=== PATIENT | male | born 1975 | race Caucasian/White ===

== ENCOUNTER 2017-10-08 09:24 | Emergency (ER) | payer MEDICAID ==
[~2017-10-08] VITALS: Ht 170.2 cm; Wt 73.0 kg
[~2017-10-08 09:24] MED LIST: CLIN150C8 PO; CLIN300C85 PO; HYDR-569 PO; OXYC-145 PO; PRED20TA PO
[2017-10-08 09:28] VITALS: BP 132/85
[2017-10-08] MEDS ORDERED: CefTRIAXone 250MG IM Kit w/LIDOcaine IM ONE (10:00)
[2017-10-08] MEDS ORDERED: CEPH-572 PO (10:02)
[2017-10-08] MEDS ORDERED: SULF1TAB49 PO (10:02)
[2017-10-08] MEDS ORDERED: TETanus/Pertussis (Acell)/Diphther VAC/PF (Tdap-Adult) 0.5ml syringe IMVAC ONE (10:05)
[2017-10-08] MEDS ORDERED: NO HOME MEDS (17:13)
== END 2017-10-08 10:33 | disposition home or self-care (01) ==
LOC: ER 09:25
DX: L03.114 Cellulitis of left upper limb (principal); F12.90 Cannabis use, unspecified, uncomplicated; F15.90 Other stimulant use, unspecified, uncomplicated; Z88.8 Allergy status to other drugs, medicaments and biological substances; Z79.2 Long term (current) use of antibiotics; Z79.899 Other long term (current) drug therapy; Z56.0 Unemployment, unspecified
CPT/HCPCS: 90471; 90715; 96372; 99284; J0696

== ENCOUNTER 2017-10-08 15:01 | Inpatient (IN) | payer MEDICAID ==
[~2017-10-08] VITALS: Ht 170.2 cm; Wt 75.0 kg
[~2017-10-08 15:01] MED LIST changes: +CEPH-572 PO; +SULF1TAB49 PO
[2017-10-08 15:44] LABS: BASOPHILS % (AUTO) 0.2 % (0-1); EOSINOPHILS # (AUTO) 0.3 X10'3 (0-0.9); EOSINOPHILS % (AUTO) 1.8 % (0-6); HEMATOCRIT 41.9 % (42.0-52.0); HEMOGLOBIN 14.3 g/dl (14.0-17.9); LYMPHOCYTES # (AUTO) 1.9 X10'3 (1.1-4.8); MEAN CORPUSCULAR HEMOGLOBIN 29.4 PG (27.0-31.0); MEAN CORPUSCULAR HGB CONC 34.1 % (33.0-36.5); MEAN CORPUSCULAR VOLUME 86.2 FL (78-98); MEAN PLATELET VOLUME 8.4 FL (7.4-10.4); MONOCYTES # (AUTO) 0.9 X10'3 (0-0.9); MONOCYTES % (AUTO) 6.1 % (2-12); NEUTROPHILS # (AUTO) 11.5 X10'3 (1.8-7.7); NEUTROPHILS % (AUTO) 78.9 % (42-75); PLATELET COUNT 320 X10'3 (140-440); RED BLOOD COUNT 4.85 X10'6 (4.70-6.10); RED CELL DISTRIBUTION WIDTH 12.8 % (11.5-14.5); WHITE BLOOD COUNT 14.6 X10'3 (4.5-11.0)
[2017-10-08 15:55] LABS: ALBUMIN 3.6 G/DL (3.4-5.0); ANION GAP 11 (8-16); BLOOD UREA NITROGEN 11 MG/DL (7-18); BUN/CREATININE RATIO 11.6 (5.4-32.0); CALCIUM 9.2 MG/DL (8.5-10.1); CHLORIDE 99 MMOL/L (99-107); CREATININE 0.95 MG/DL (0.60-1.10); GLUCOSE 149 MG/DL (70-104); POTASSIUM 3.3 MMOL/L (3.5-5.1); SODIUM 134 MMOL/L (135-145); TOTAL CARBON DIOXIDE 24.4 MMOL/L (24-32); eGFR 88 ML/MIN
[2017-10-08] MEDS ORDERED: iohexol 300mg/ml 100ml inj. ONE (16:02)
[2017-10-08] MEDS ORDERED: normal saline 1000ML IV soln IVB ONE (16:05)
[2017-10-08] MEDS ORDERED: NO HOME MEDS (17:13)
[2017-10-08] MEDS ORDERED: CefTRIAXone 2gm/D5W 50ml 50 ML IV ONE (17:25)
[2017-10-08] MEDS ORDERED: vancomycin/NS 1 GM ADD-VANTAGE 250 ML X 1 DOSE IV ONE (17:30)
[2017-10-08] MEDS ORDERED: HYDROmorphone inj. 0.5 MG/0.5 ML DISP.SYRIN IV PRN ×2 (18:00)
[2017-10-08] MEDS ORDERED: metoclopramide 5 mg/ml inj IV PRN (18:00)
[2017-10-08] MEDS ORDERED: acetaminophen 650mg rectal suppository RC PRN (18:00)
[2017-10-08] MEDS ORDERED: potassium Cl 40MEQ/NS 500ml 500 ML IV PRN ×2 (18:00)
[2017-10-08] MEDS ORDERED: HYDROcodone/acetaminophen 5mg/325mg tablet PO PRN (18:00)
[2017-10-08] MEDS ORDERED: potassium Cl 20 mEq SR tablet PO PRN ×2 (18:00)
[2017-10-08] MEDS ORDERED: bisacodyl 10mg suppository rectal RC PRN (18:00)
[2017-10-08] MEDS ORDERED: morphine 4 MG/ML inj SYRINge IV PRN ×2 (18:00)
[2017-10-08] MEDS ORDERED: diphenhydrAMINE 25mg capsule PO PRN (18:00)
[2017-10-08] MEDS ORDERED: ondansetron/PF 4mg/2ml inj IV PRN (18:00)
[2017-10-08] MEDS ORDERED: acetaminophen 325mg tablet PO PRN ×2 (18:00)
[2017-10-08] MEDS ORDERED: diphenhydrAMINE 50 mg/ml inj IV PRN (18:00)
[2017-10-08] MEDS ORDERED: mag hydrox/Alum hydrox/simeth 30ml oral suspension PO PRN (18:00)
[2017-10-08] MEDS ORDERED: magnesium hydroxide 30ml (MOM) UD suspension PO PRN (18:00)
[2017-10-08 19:11] LABS: PARTIAL THROMBOPLASTIN TIME 33 SECONDS (22-32)
[2017-10-08 19:44] VITALS: BP 132/86
[2017-10-08] MEDS: docusate sod 100mg capsule PO SCH (20:00)
[2017-10-08] MEDS: HYDROcodone/acetaminophen 10/325mg tab PO PRN (20:12)
[2017-10-08] MEDS ORDERED: temazepam 15mg capsule PO PRN (21:00)
[2017-10-08] MEDS: potassium Cl 20mEq in NS 1,000 ML IV SCH (21:32)
[2017-10-08 21:46] LABS: URINE AMPHETAMINE SCREEN POSITIVE (Neg); URINE BARBITUATE SCREEN NEGATIVE (Neg); URINE BENZODIAZEPINES SCREEN NEGATIVE (Neg); URINE CANNABINOID SCREEN NEGATIVE (Neg); URINE COCAINE SCREEN NEGATIVE (Neg); URINE METHADONE SCREEN NEGATIVE (Neg); URINE OPIATE SCREEN NEGATIVE (Neg); URINE PHENCYCLIDINE SCREEN NEGATIVE (Neg)
[2017-10-08 22:00] VITALS: BP 120/86
[2017-10-09] MEDS: HYDROcodone/acetaminophen 10/325mg tab PO PRN ×3 (03:33→16:47)
[2017-10-09 05:00] VITALS: BP 127/86
[2017-10-09 06:04] LABS: BASOPHILS % (AUTO) 0.1 % (0-1); EOSINOPHILS # (AUTO) 0.4 X10'3 (0-0.9); EOSINOPHILS % (AUTO) 2.8 % (0-6); HEMATOCRIT 38.1 % (42.0-52.0); HEMOGLOBIN 13.2 g/dl (14.0-17.9); LYMPHOCYTES # (AUTO) 2.5 X10'3 (1.1-4.8); LYMPHOCYTES % (AUTO) 18.4 % (21-51); MEAN CORPUSCULAR HEMOGLOBIN 30.3 PG (27.0-31.0); MEAN CORPUSCULAR HGB CONC 34.6 % (33.0-36.5); MEAN CORPUSCULAR VOLUME 87.7 FL (78-98); MEAN PLATELET VOLUME 8.6 FL (7.4-10.4); MONOCYTES # (AUTO) 1.2 X10'3 (0-0.9); MONOCYTES % (AUTO) 8.6 % (2-12); NEUTROPHILS # (AUTO) 9.5 X10'3 (1.8-7.7); NEUTROPHILS % (AUTO) 70.1 % (42-75); PLATELET COUNT 296 X10'3 (140-440); RED BLOOD COUNT 4.35 X10'6 (4.70-6.10); RED CELL DISTRIBUTION WIDTH 12.5 % (11.5-14.5); WHITE BLOOD COUNT 13.5 X10'3 (4.5-11.0)
[2017-10-09 06:22] LABS: ALANINE AMINOTRANSFERASE 24 U/L (12-78); ALBUMIN 2.9 G/DL (3.4-5.0); ALBUMIN/GLOBULIN RATIO 0.7 (1.1-1.5); ALKALINE PHOSPHATASE 78 IU/L (46-116); ANION GAP 8 (8-16); ASPARTATE AMINO TRANSFERASE 19 U/L (10-37); BILIRUBIN,TOTAL 0.2 MG/DL (0.1-1.0); BLOOD UREA NITROGEN 10 MG/DL (7-18); BUN/CREATININE RATIO 12.5 (5.4-32.0); CALCIUM 8.3 MG/DL (8.5-10.1); CHLORIDE 103 MMOL/L (99-107); GLUCOSE 112 MG/DL (70-104); POTASSIUM 4.2 MMOL/L (3.5-5.1); SODIUM 137 MMOL/L (135-145); TOTAL CARBON DIOXIDE 25.9 MMOL/L (24-32); TOTAL PROTEIN 6.8 G/DL (6.4-8.2); eGFR > 90 ML/MIN
[2017-10-09] MEDS: K and/or MAG REPLACEMENT MC SCH (07:36)
[2017-10-09] MEDS: docusate sod 100mg capsule PO SCH ×3 (07:39→20:16)
[2017-10-09] MEDS: vancomycin/NS 1 GM ADD-VANTAGE 250 ML IV SCH ×3 (07:43→23:16)
[2017-10-09] MEDS: pantoprazole 40mg Tablet.DR PO SCH (07:43)
[2017-10-09 10:00] VITALS: BP 125/75
[2017-10-09] MEDS: potassium Cl 20mEq in NS 1,000 ML IV SCH ×2 (14:00→14:46)
[2017-10-09 18:00] VITALS: BP 137/85
[2017-10-09] MEDS: piperacillin/tazo 3.375gm/50ml 50 ML IV SCH (20:16)
[2017-10-09 22:00] VITALS: BP 116/76
[2017-10-10] VITALS (8 sets, daily range): BP systolic 109–133; BP diastolic 72–93
[2017-10-10] MEDS: piperacillin/tazo 3.375gm/50ml 50 ML IV SCH ×4 (02:26→19:47)
[2017-10-10] MEDS: potassium Cl 20mEq in NS 1,000 ML IV SCH ×3 (03:55→12:12)
[2017-10-10] MEDS: HYDROcodone/acetaminophen 10/325mg tab PO PRN (05:59)
[2017-10-10] MEDS ORDERED: VANCOMYCIN LEVEL IV NR (06:30)
[2017-10-10 07:16] LABS: BASOPHILS % (AUTO) 0.2 % (0-1); EOSINOPHILS # (AUTO) 0.4 X10'3 (0-0.9); HEMATOCRIT 38.4 % (42.0-52.0); LYMPHOCYTES # (AUTO) 1.9 X10'3 (1.1-4.8); LYMPHOCYTES % (AUTO) 13.9 % (21-51); MEAN CORPUSCULAR HEMOGLOBIN 29.4 PG (27.0-31.0); MEAN CORPUSCULAR HGB CONC 33.8 % (33.0-36.5); MEAN CORPUSCULAR VOLUME 86.9 FL (78-98); MEAN PLATELET VOLUME 8.6 FL (7.4-10.4); MONOCYTES # (AUTO) 1.2 X10'3 (0-0.9); MONOCYTES % (AUTO) 8.4 % (2-12); NEUTROPHILS # (AUTO) 10.3 X10'3 (1.8-7.7); NEUTROPHILS % (AUTO) 74.5 % (42-75); PLATELET COUNT 303 X10'3 (140-440); RED BLOOD COUNT 4.42 X10'6 (4.70-6.10); RED CELL DISTRIBUTION WIDTH 12.7 % (11.5-14.5); WHITE BLOOD COUNT 13.8 X10'3 (4.5-11.0)
[2017-10-10] MEDS: pantoprazole 40mg Tablet.DR PO SCH (07:30)
[2017-10-10 07:33] LABS: ALANINE AMINOTRANSFERASE 33 U/L (12-78); ALBUMIN 2.8 G/DL (3.4-5.0); ALBUMIN/GLOBULIN RATIO 0.7 (1.1-1.5); ALKALINE PHOSPHATASE 83 IU/L (46-116); ANION GAP 5 (8-16); ASPARTATE AMINO TRANSFERASE 25 U/L (10-37); BILIRUBIN,TOTAL 0.3 MG/DL (0.1-1.0); BLOOD UREA NITROGEN 8 MG/DL (7-18); BUN/CREATININE RATIO 7.8 (5.4-32.0); CALCIUM 8.7 MG/DL (8.5-10.1); CHLORIDE 102 MMOL/L (99-107); CREATININE 1.03 MG/DL (0.60-1.10); GLUCOSE 103 MG/DL (70-104); POTASSIUM 4.6 MMOL/L (3.5-5.1); SODIUM 136 MMOL/L (135-145); TOTAL CARBON DIOXIDE 29.1 MMOL/L (24-32); TOTAL PROTEIN 6.9 G/DL (6.4-8.2); VANCOMYCIN,TROUGH 9.6 UG/ML (6.0-14.0); eGFR 80 ML/MIN
[2017-10-10] MEDS: vancomycin/NS 1 GM ADD-VANTAGE 250 ML IV SCH (07:58)
[2017-10-10] MEDS: K and/or MAG REPLACEMENT MC SCH (08:00)
[2017-10-10] MEDS: docusate sod 100mg capsule PO SCH ×2 (08:00→19:47)
[2017-10-10] MEDS ORDERED: ceFAZolin 1000mg inj ONE (08:35)
[2017-10-10] MEDS ORDERED: sevoflurane 250ml liquid IH ONE (09:12)
[2017-10-10] MEDS ORDERED: midazolam 2 mg/2 ml injection ONE (09:14)
[2017-10-10] MEDS ORDERED: fentaNYL /PF 50mcg/ml 5ml ampule ONE (09:14)
[2017-10-10] MEDS ORDERED: propofol inj 20 ML IV ONE (09:15)
[2017-10-10] MEDS ORDERED: succinylcholine 20mg/ml inj IV ONE (09:15)
[2017-10-10] MEDS ORDERED: LIDOcaine 2% (20mg/ml) 5ml vial ONE (09:15)
[2017-10-10] MEDS ORDERED: ondansetron/PF 4mg/2ml inj ONE (09:51)
[2017-10-10] MEDS ORDERED: LACTOSE-FREE FOOD 237ML (BOOST) PO SCH (13:00)
[2017-10-10] MEDS: vancomycin inj 1,250 MG in normal saline 250ml IV soln 250 ML IV SCH ×2 (15:00→23:05)
[2017-10-10] MEDS: lactobacillus rhamnosus 10,000 MMU CELLS/CAPSULE PO SCH (19:47)
[2017-10-11] MEDS: piperacillin/tazo 3.375gm/50ml 50 ML IV SCH ×3 (02:39→13:45)
[2017-10-11] MEDS: potassium Cl 20mEq in NS 1,000 ML IV SCH (02:46)
[2017-10-11 05:00] VITALS: BP 107/79
[2017-10-11 05:52] LABS: BASOPHILS % (AUTO) 0.2 % (0-1); EOSINOPHILS # (AUTO) 0.4 X10'3 (0-0.9); EOSINOPHILS % (AUTO) 4.7 % (0-6); HEMOGLOBIN 13.2 g/dl (14.0-17.9); LYMPHOCYTES % (AUTO) 24.2 % (21-51); MEAN CORPUSCULAR HEMOGLOBIN 29.9 PG (27.0-31.0); MEAN CORPUSCULAR HGB CONC 34.7 % (33.0-36.5); MEAN CORPUSCULAR VOLUME 86.1 FL (78-98); MEAN PLATELET VOLUME 8.2 FL (7.4-10.4); MONOCYTES # (AUTO) 0.9 X10'3 (0-0.9); MONOCYTES % (AUTO) 10.6 % (2-12); NEUTROPHILS # (AUTO) 5.1 X10'3 (1.8-7.7); NEUTROPHILS % (AUTO) 60.3 % (42-75); PLATELET COUNT 303 X10'3 (140-440); RED BLOOD COUNT 4.42 X10'6 (4.70-6.10); RED CELL DISTRIBUTION WIDTH 12.5 % (11.5-14.5); WHITE BLOOD COUNT 8.4 X10'3 (4.5-11.0)
[2017-10-11 06:24] LABS: ALANINE AMINOTRANSFERASE 48 U/L (12-78); ALBUMIN 2.6 G/DL (3.4-5.0); ALBUMIN/GLOBULIN RATIO 0.6 (1.1-1.5); ALKALINE PHOSPHATASE 85 IU/L (46-116); ANION GAP 8 (8-16); ASPARTATE AMINO TRANSFERASE 34 U/L (10-37); BILIRUBIN,TOTAL 0.2 MG/DL (0.1-1.0); BLOOD UREA NITROGEN 9 MG/DL (7-18); BUN/CREATININE RATIO 10.5 (5.4-32.0); CALCIUM 9.1 MG/DL (8.5-10.1); CHLORIDE 103 MMOL/L (99-107); CREATININE 0.86 MG/DL (0.60-1.10); GLUCOSE 114 MG/DL (70-104); POTASSIUM 4.4 MMOL/L (3.5-5.1); SODIUM 139 MMOL/L (135-145); TOTAL CARBON DIOXIDE 28.3 MMOL/L (24-32); eGFR > 90 ML/MIN
[2017-10-11] MEDS: vancomycin inj 1,250 MG in normal saline 250ml IV soln 250 ML IV SCH ×2 (07:08→15:00)
[2017-10-11] MEDS: pantoprazole 40mg Tablet.DR PO SCH (07:14)
[2017-10-11] MEDS: docusate sod 100mg capsule PO SCH (08:00)
[2017-10-11] MEDS: K and/or MAG REPLACEMENT MC SCH (08:00)
[2017-10-11] MEDS: lactobacillus rhamnosus 10,000 MMU CELLS/CAPSULE PO SCH (09:27)
[2017-10-11 10:00] VITALS: BP 122/79
[2017-10-11 14:00] VITALS: BP 107/71
[2017-10-11] MEDS ORDERED: VANCOMYCIN LEVEL IV NR (14:30)
== END 2017-10-11 15:00 | disposition left against medical advice (07) | DRG 364 ==
LOC: ER 15:01 → ED HOLD 18:00 → ORTHO 4S 19:00
PROVIDERS: ADMIT Family Medicine; ATTEND Family Medicine
PROC: BP2P1ZZ Computerized Tomography (CT Scan) of Left Hand using Low Osmolar Contrast (ICD-10-PCS; 2017-10-08)
PROC: 0J9K0ZZ Drainage of Left Hand Subcutaneous Tissue and Fascia, Open Approach (ICD-10-PCS; principal; 2017-10-10 09:12)
DX: L03.114 Cellulitis of left upper limb (principal); E87.1 Hypo-osmolality and hyponatremia; I10 Essential (primary) hypertension; L02.512 Cutaneous abscess of left hand; E86.0 Dehydration; F12.90 Cannabis use, unspecified, uncomplicated; F15.10 Other stimulant abuse, uncomplicated; F17.210 Nicotine dependence, cigarettes, uncomplicated; Z88.8 Allergy status to other drugs, medicaments and biological substances; Z71.6 Tobacco abuse counseling
CPT/HCPCS: 36415; 73201; 80048; 80053; 80202; 80305; 83735; 85025; 85610; 85730; 87070; 87075; 87077; 87186; 96361; 96365; 96368; 99285; A6446; A6449; A7000; J0330; J0690; J0696; J2001; J2250; J2270; J2405; J2543; J2704; J3010; J3370; J7030; J7120; Q9967

== ENCOUNTER 2018-02-20 00:06 | Emergency (ER) | payer MEDICAID ==
[~2018-02-20] VITALS: Ht 170.2 cm; Wt 77.3 kg
[~2018-02-20 00:06] MED LIST changes: -CEPH-572 PO; -CLIN150C8 PO; -CLIN300C85 PO; -HYDR-569 PO; +NO HOME MEDS; -OXYC-145 PO; -PRED20TA PO; -SULF1TAB49 PO
[2018-02-20] MEDS ORDERED: DOXYCYCLINE 100MG CAPSULE PO STA (00:31)
[2018-02-20] MEDS ORDERED: DOXY100C43 PO (00:32)
[2018-02-20] MEDS ORDERED: CEPH500C5 PO (00:32)
[2018-02-20] MEDS ORDERED: cephalexin 250mg capsule PO ONE (00:35)
[2018-02-20] MEDS ORDERED: ondansetron 4mg rapidly disintigrating tab PO ONE (00:35)
[2018-02-20] MEDS ORDERED: bacitracin 15gm ointment TP ONE (00:45)
[2018-02-20 01:28] VITALS: BP 137/99
== END 2018-02-20 01:43 | disposition home or self-care (01) ==
LOC: ER 00:07
DX: L03.113 Cellulitis of right upper limb (principal); F12.10 Cannabis abuse, uncomplicated; F15.10 Other stimulant abuse, uncomplicated; Z56.0 Unemployment, unspecified; Z88.8 Allergy status to other drugs, medicaments and biological substances
CPT/HCPCS: 99284

== ENCOUNTER 2019-01-10 22:06 | Emergency (ER) | payer MEDICAID ==
[~2019-01-10] VITALS: Ht 170.2 cm; Wt 86.4 kg
[~2019-01-10 22:06] MED LIST changes: +CEPH500C5 PO
[2019-01-10] MEDS ORDERED: diphenhydrAMINE 50 mg/ml inj IV ONE (22:45)
[2019-01-10] MEDS ORDERED: normal saline 1000ML IV soln IVB STA (22:51)
[2019-01-10] MEDS ORDERED: normal saline 1000ML IV soln IVB ONE (22:55)
[2019-01-10] MEDS ORDERED: famotidine/PF 10 mg/ml inj IV ONE (22:55)
[2019-01-10] MEDS ORDERED: epiNEPHrine 1 mg/ml inj SQ ONE (22:55)
[2019-01-11] MEDS ORDERED: dexamethasone sod phosphate 10mg/ml inj IV STA (00:19)
[2019-01-11] MEDS ORDERED: famotidine/PF 10 mg/ml inj IV ONE (00:20)
[2019-01-11] MEDS ORDERED: DIPH25CA83 PO (00:24)
[2019-01-11] MEDS ORDERED: FAMO-128 PO (00:24)
[2019-01-11 01:05] VITALS: BP 125/81
== END 2019-01-11 01:23 | disposition home or self-care (01) ==
LOC: ER 22:06
DX: T78.09XA Anaphylactic reaction due to other food products, initial encounter (principal); F12.90 Cannabis use, unspecified, uncomplicated; F15.90 Other stimulant use, unspecified, uncomplicated; F10.99 Alcohol use, unspecified with unspecified alcohol-induced disorder; F17.200 Nicotine dependence, unspecified, uncomplicated; Z56.0 Unemployment, unspecified; Z98.890 Other specified postprocedural states; Z88.8 Allergy status to other drugs, medicaments and biological substances; Z79.899 Other long term (current) drug therapy; X58.XXXA Exposure to other specified factors, initial encounter; Y93.89 Activity, other specified; Y92.89 Other specified places as the place of occurrence of the external cause; Y99.8 Other external cause status; Y90.9 Presence of alcohol in blood, level not specified
CPT/HCPCS: 96372; 96374; 96375; 96376; 99291; J0171; J1100; J1200; J3490; J7030